=== PATIENT | female | born 1950 | race Caucasian/White ===

== ENCOUNTER → 2021-05-14 08:54 | Outpatient (CLI) | payer OTHER, SELFPAY ==
--- NOTE | ~2021-05-14 | MM_ITS ---
EXAMINATION: MM diagnostic lisa BI w eric HISTORY: Palpable left breast abnormality TECHNIQUE: Additional 3-D tomosynthesis images of the breasts were performed and synthetic 2-D images were generated. CAD analysis was submitted and interpreted. COMPARISON: 01/04/2019 BREAST PARENCHYMAL COMPOSITION: Breast composed of scattered areas of fibroglandular density FINDINGS: The breasts are stable. Asymmetry in the upper outer quadrant of the left breast is unchang ed from prior examination. No new masses, calcifications or architectural distortion. IMPRESSION: 1. Stable bilateral mammogram. 2. Targeted left breast ultrasound recommended for area of palpable concern. BI-RADS Category 0: Incomplete: Needs additional imaging evaluation. Reviewed, dictated and finalized at location A. [employer] SUPERINTENDENT
== END ==
PROVIDERS: Visit Provider Nurse Practitioner Family
DX: N63.23 Unspecified lump in the left breast, lower outer quadrant (principal); R92.8 Other abnormal and inconclusive findings on diagnostic imaging of breast
CPT/HCPCS: 77062; 77066; G0279

== ENCOUNTER → 2021-05-29 09:21 | Outpatient (CLI) | payer OTHER, SELFPAY ==
--- NOTE | ~2021-05-29 | US_ITS ---
US breast LT limited INDICATION: Follow-up palpable breast abnormality TECHNIQUE: Dedicated Limited left breast ultrasound COMPARISON: Mammogram dated 05/14/2021 FINDINGS: The left breast is composed of normal heterogeneous echotexture without focal solid or cyst ic mass. IMPRESSION: 1: Normal limited left breast ultrasound. No abnormality in the area of palpable concern. BI-RADS CATEGORY 1 - NEGATIVE Routine yearly screening mammogram and regular clinical breast examination are recommended. Reviewed, dictated and finalized at location A. [employer] EPIDEMIOLOGIST IMPRESSION: 1: Normal limited left breast ultrasound. No abnormality in the area of palpabl e concern. BI-RADS CATEGORY 1 - NEGATIVE Routine yearly screening mammogram and regular clinical breast examination are recommended.
== END ==
PROVIDERS: PCP Nurse Practitioner Family; Visit Provider Nurse Practitioner Family
DX: R92.8 Other abnormal and inconclusive findings on diagnostic imaging of breast (principal)
CPT/HCPCS: 76642